=== PATIENT | female | born 2000 | race Caucasian/White ===

== ENCOUNTER 2024-09-16 02:11 | Emergency (ER) | payer MEDICAID ==
[~2024-09-16] VITALS: Ht 167.6 cm; Wt 62.0 kg
[2024-09-16 02:12] VITALS: TEMP 37.1; O2SAT 98
[2024-09-16] MEDS: LEVETIRACETAM 1000MG PREMIX 100 ML IV ONE (03:22)
[2024-09-16] MEDS ORDERED: KEPP500 MT (04:05)
[2024-09-16 04:32] VITALS: BP 123/62; PULSE 84; RESP 13; O2SAT 98
== END 2024-09-16 04:36 | disposition home or self-care (01) ==
LOC: ER 02:11
DX: G40.909 Epilepsy, unspecified, not intractable, without status epilepticus (principal); Z91.148 Patient's other noncompliance with medication regimen for other reason
CPT/HCPCS: 99284; J1953